=== PATIENT | female | born 1950 | race Caucasian/White ===

== ENCOUNTER 2017-09-02 12:08 | Emergency (ER) | payer OTHER ==
[~2017-09-02] VITALS: Ht 172.7 cm; Wt 79.5 kg
[~2017-09-02 12:08] MED LIST: ALEVE220 M2 PO; AMOXICILLIN500 M1 PO; ANTI-FUNGAL141 GM TP; ATARAX,VISTARIL25 MG PO; BACTRIM,SEPT1 TABLET PO; DIAZEPAM5 MG PO; FLEXERIL10 MG PO; HYDROCODON-ACE1 EAC7 PO; KEFLEX500 MG PO; KENALOG,ARISTOC15 G1 TP; LISINOPRIL10 MG PO; MICONAZOLE 11 EACH VG; NAPROXEN250 MG PO; PERCOCET 5/31 TABLET PO; PREDNISONE10 MG PO; PREDNISONE50 MG PO; PYRIDIUM200 MG PO; ULTRAM50 MG PO; VENLAFAXINE HC150 M1 PO
[2017-09-02] MEDS ORDERED: NAPROSYN500 MG PO (13:38)
[2017-09-02 14:04] VITALS: BP 128/78
== END 2017-09-02 14:05 | disposition home or self-care (01) ==
LOC: EME 12:08
DX: S86.912A Strain of unspecified muscle(s) and tendon(s) at lower leg level, left leg, initial encounter (principal); X58.XXXA Exposure to other specified factors, initial encounter; I10 Essential (primary) hypertension
CPT/HCPCS: 73564; 99281; 99283